=== PATIENT | male | born 1975 | race African-American/Black ===

== ENCOUNTER 2017-05-02 19:14 | Emergency (ER) | payer OTHER ==
[~2017-05-02 19:14] MED LIST: ZOFRAN4 MG PO
[2017-05-02 19:30] LABS: EOSINOPHIL (%) 3.9 % (0-5); EOSINOPHIL COUNT 0.3 K/uL (0-0.3); HEMATOCRIT 37.4 % (38.0-50.0); IMMATURE GRANULOCYTE (%) 0.4 % (0.0-0.7); INSTRUMENT ABS NEUTROPHIL CT 2.4 K/uL; LYMPHOCYTE COUNT 3.5 K/uL (1.0-2.8); MCH 30.9 PG (29.0-34.0); MEAN PLAT.VOLUME 8.5 uM^3 (9.0-12.4); MONOCYTE (%) 6.9 % (3-12); MONOCYTE COUNT 0.5 K/uL (0-0.8); NEUTROPHIL (%) 36.5 % (45-76); NEUTROPHIL COUNT 2.4 K/uL (1.8-6.4); PLATELET COUNT 207 K/uL (156-360); RBC DIS.WIDTH-CV 13.2 % (11.8-14.6); RBC DIS.WIDTH-SD 44.3 % (39-53); RED BLOOD COUNT 4.11 M/uL (4.00-5.50); WHITE BLOOD COUNT 6.7 K/uL (4.1-10.2)
[2017-05-02 19:38] LABS: AMYLASE 53 IU/L (1-118); CHLORIDE 105 mEq/L (99-109); POTASSIUM 3.3 mEq/L (3.7-5.4); SODIUM 141 mEq/L (136-147)
[2017-05-02 19:40] LABS: GLUCOSE 93 mg/dL (70-99)
[2017-05-02 19:41] LABS: ANION GAP 7 MEQ/L (2-14)
[2017-05-02 19:43] LABS: SERUM ETHYL ALCOHOL < 10 mg/dL
[2017-05-02 19:44] LABS: GFR ESTIMATE (CALCULATED) > 59 mL/min/
[2017-05-02 19:45] LABS: UREA NITROGEN (BUN) 21 mg/dL (9-23)
[2017-05-02 19:47] LABS: LIPASE 13 U/L (1.0-51.0)
[2017-05-02] MEDS ORDERED: NAPROSYN500 MG PO (20:53)
== END 2017-05-02 21:03 | disposition home or self-care (01) ==
LOC: TRA 19:14 → EME 19:14 → TRA 21:03
PROVIDERS: Emergency Medicine
DX: S80.01XA Contusion of right knee, initial encounter (principal); S06.9X1A Unspecified intracranial injury with loss of consciousness of 30 minutes or less, initial encounter; V89.2XXA Person injured in unspecified motor-vehicle accident, traffic, initial encounter; Y92.410 Unspecified street and highway as the place of occurrence of the external cause; F17.200 Nicotine dependence, unspecified, uncomplicated; M54.2 Cervicalgia
CPT/HCPCS: 70450; 72125; 73560; 80048; 81003; 82150; 83690; 85025; 86900; 86901; 99281; 99284; G0480

== ENCOUNTER 2018-02-28 18:41 | Emergency (ER) | payer SELFPAY ==
[~2018-02-28] VITALS: Ht 185.4 cm; Wt 96.1 kg
[~2018-02-28 18:41] MED LIST changes: +NAPROSYN500 MG PO
[2018-02-28 18:45] VITALS: BP 124/89
[2018-02-28] MEDS ORDERED: MOTRIN600 MG PO (19:55)
== END 2018-02-28 20:20 | disposition home or self-care (01) ==
LOC: EME 18:41
DX: S96.911A Strain of unspecified muscle and tendon at ankle and foot level, right foot, initial encounter (principal); X58.XXXA Exposure to other specified factors, initial encounter; Y92.480 Sidewalk as the place of occurrence of the external cause
CPT/HCPCS: 73610; 99281; 99283